=== PATIENT | male | born 1960 | race Caucasian/White ===

== ENCOUNTER 2024-02-18 16:32 | Emergency (ER) | payer OTHER, SELFPAY ==
[2024-02-18 16:43] VITALS: BP 163/87
[2024-02-18 17:01] LABS: % Basophils 0.3 % (0-2); % Eosinophils 1.4 % (0-6); % Immature Granulocytes 0.3 % (0-0.5); % Lymphocytes 35.5 % (20.5-51.1); % Monocytes 5.1 % (1.7-9.3); % Neutrophils 57.4 % (42.2-75.2); Absolute Eosinophils 0.1 10^3/uL (0-0.7); Absolute Lymphocytes 3.4 10^3/uL (1.2-3.4); Absolute Monocytes 0.5 10^3/uL (0.1-0.6); Absolute Neutrophils 5.6 10^3/uL (1.4-6.5); Hematocrit 41.9 % (39.0-52.0); Hemoglobin 14.7 g/dL (13.0-18.0); Mean Corp Hgb Conc. 35.1 g/dL (33.0-37.0); Mean Corpuscular Hgb 30.8 pg (27.0-31.0); Mean Corpuscular Volume 87.7 fL (80.0-94.0); Mean Platelet Volume 9.4 fL (7.4-10.4); Nucleated Red Blood Cells % 0 % (-); Platelet Count 259 10^3/uL (130-400); Red Blood Cell Count 4.78 10^6/uL (4.70-6.10); Red Cell Dist. Width 12.5 % (11.5-14.5); White Blood Cell Count 9.7 10^3/uL (4.8-10.8)
[2024-02-18 17:12] LABS: D-Dimer 0.33 ug/mlFEU (0.00-0.50)
[2024-02-18 17:17] LABS: ALT (SGPT) 33 U/L (0-50); AST (SGOT) 34 U/L (17-59); Albumin 4.4 g/dl (3.5-5.0); Alkaline Phosphatase 71 U/L (38-126); Blood Urea Nitrogen 17 mg/dl (9-20); Calcium 9.4 mg/dl (8.4-10.2); Carbon Dioxide 27 mmol/L (22-30); Chloride 105 mmol/L (98-107); Glucose 99 mg/dl (70-99); Potassium 4.1 mmol/L (3.5-5.1); Sodium 139 mmol/L (135-145); Total Bilirubin 0.7 mg/dl (0.2-1.3); Total Protein 6.9 g/dl (6.3-8.2); eGFR > 60.00
[2024-02-18 17:24] LABS: Troponin I < 0.012 ng/ml
--- NOTE | 2024-02-18 18:29 | ED.GENMED ---
History of Present Illness
General
Chief Complaint: Breathing Problem
Source: patient
Exam Limitations: none
Time Seen by Provider: 02/18/24 18:00
History of Present Illness
History of Present Illness:
This is a 63 year old male that comes in with c/o SOB and cough. States that he has been sick for the past 19 days. States that he is SOB and that he has spastic coughing spells. States that this causes him to choke. Patient went to last week and
given Prednisone 20mg BID for 5 days, Z-pack and albuterol but nothing is helping. States that he has had diarrhea he thinks from the medication and a headache. states that he has had COVID twice and the last was about 8 months ago. Denies
any fever, chills, chest pain, abd pain, nausea, vomiting, dizziness, urinary burning.
Past History
Past History
ED Past Medical History: Other (Kidney stones); Negative Asthma, HTN, Hypercholesterolemia or NIDDM
ED Past Surgical History: Orthopedic (Right knee surgery, Left arm hardware removed)
Social History
Tobacco: Former smoker
Alcohol: Occasional
Personal:
Living: with family
Review of Systems
Review of Systems
All Other Systems: ROS reviewed and negative except as documented in HPI and ROS
Constitutional: Reports no symptoms; Denies fever or chills
EENT: Reports no symptoms
Respiratory: Reports cough and trouble breathing
Cardiac: Reports no symptoms; Denies chest pain
ABD/GI: Reports diarrhea; Denies abdominal pain, nausea or vomiting
: Reports no symptoms; Denies dysuria, frequency or urgency
Musculoskeletal: Reports no symptoms
Skin: Reports no symptoms
Neurological: Reports headache; Denies dizzy
Psychiatric: Reports no symptoms
Phy Exam
General Physical Exam
General Presentation: no apparent distress
General age: appears stated age
General Skin: warm and dry
General Habitus: normal
General Mental: alert
General Hydration: appears well hydrated
ENT Exam
ENT Exam: TM's normal, pharynx normal and neck supple
Eye Exam
Eye Exam: EOMI
Cardiovascular Exam
Cardiovascular Exam: regular rate/rhythm, no edema, no murmur and normal peripheral pulses
Pulmonary Exam
Pulmonary Exam: no respiratory distress, no rales, chest non tender, no crackles, no rhonchi, no wheezing, decreased breath sounds and other (Dry cough noted)
Gastrointestinal Exam
Gastrointestinal Exam: normal bowel sounds, non tender, soft, no organomegaly, no pulsatile mass and non distended
Musculoskeletal Exam
Musculoskeletal Exam: full ROM and no edema
Skin Exam
Skin Exam: normal color, warm/dry, no rash and no petechia
Psychiatric Exam
Psychiatric Exam: normal mood/affect
Scores
Heart Failure Risk
Heart Failure Risk Score: Not Applicable
Course
Orders/Labs/Results
Orders:
Orders
02/18/24 16:47
Electrocardiogram (*1) Urgent
Reason for Study: Shortness of Breath
Chest [CR Chest - 2 Views ] Urgent
Comment:
Reason For Exam: sob with coughing
02/18/24 16:48
EKG- Treatment ONCE
02/18/24 16:53
Complete Blood Count/With Diff Urgent
Comprehensive Metabolic Panel Urgent
D-Dimer Urgent
Troponin I Urgent
02/18/24 18:11
Ipratropium/Albuterol Sulfate [Duoneb] 3 ml INH R NOW ONE
02/18/24 18:12
CT Chest Pe Study Urgent
Comment:
Reason For Exam: SOB
02/18/24 16:53
02/18/24 16:53
Labs unremarkable. D-dimer 0.33, Troponin <0.012,
Vital Signs
Initial and Last Documented VS:
Initial Vital Signs
Temp Pulse Resp BP Pulse Ox
98.1 F 82 16 163/87 97
02/18/24 16:43 02/18/24 16:43 02/18/24 16:43 02/18/24 16:43 02/18/24 16:43
Last Documented Vital Signs
Temp Pulse Resp BP Pulse Ox
98.1 F 73 20 132/75 95
02/18/24 20:06 02/18/24 20:30 02/18/24 20:30 02/18/24 20:06 02/18/24 20:30
MDM/Problems Addressed
Differential Diagnosis Includes:
Residual COVID cough, Viral syndrome
MDM/Problems Addressed:
This is a 63 year old male that comes in with c/o coughing for the past 19 days. State that he is SOB with a cough. Staes that he has spasms with the coughing that he starts to vomit. Patient has been seen at and given Steroids, Z-pack and
albuterol.
Will check labs. Chest x-ray and it all negative get CT chest.
Back into see patient. Explained that his CT of the chest is negative for any PE, pleural effusion, Pericardia effusion. This may be residual SOB from COVID. Patient to follow up with the correctional casework specialist. Will also place patient on Protonix as
there may be some reflux that is causing his coughing. Patient to stay away from Caffeine as this will also decrease any reflux. Return with any concerns.
Chronic conditions affecting care:
NA
Acute Exacerbation and/or Progression of Chronic Illness:
NA
*Radiology
Radiology exam reviewed: radiology read reviewed (Ct chest-Negative or pulmonary Embolim. No Pleural effusion, No Pericardial effusion. Negative for any Pneumonia. Chest-No radiographic evidence for Pneumonia, pleural effusion or acute pulmonary
edema. )
*Pulse Oximetry
Patient hypoxic: no
*EKG
Interpreted by ED Provider?: Yes
Heart Rate: 72
Rate: normal
Rhythm: sinus
[place]: normal axis
Interval: normal interval
QRS Pattern: normal QRS
Ischemia: no ischemia
*Solar Pool Heating Installer Interpretation
Rate: normal
Heart Rate: 72
Rhythm: sinus
*Critical Care Note
Total Time (30-74mins, 75-104mins- exclusive of procedures): Not Applicable
ED Attending Note
-
Portions of this chart may have been created with voice recognition software.� Occasional wrong word or��sound alike� substitutions may have occurred due to the inherent limitations of voice recognition software.
Discharge Plan
Departure
Patient Disposition: Home (Routine Discharge)
Date of Disposition: 02/18/24
Time of Disposition: 20:56
Patient with high blood pressure during this ER visit?: Yes
Condition: Good
Covid-19: Not Applicable
Discharge Problem:
SOB (shortness of breath)
Instructions: Shortness of Breath (Dyspnea) (DC), BLOOD PRESSURE
Prescriptions:
New
pantoprazole [Protonix] 40 mg tablet,delayed release (DR/EC)
40 mg PO DAILY Qty: 30 0RF
No Action
oxycodone-acetaminophen 5-325 mg Tablet
1 tab PO Q8HPRN PRN (Reason: severe pain)
Patient Comments:
09/21/22: Per PDMP, last filled 09/07/22 #8 for 3 days
tamsulosin 0.4 mg Capsule
0.4 mg PO DAILY
ciprofloxacin HCl [Cipro] 500 mg tablet
500 mg PO BID Qty: 10 0RF
Rx Instructions:
I 0PO BID
Referrals:
Baldomero Lucio MD [Family Provider] -
Pradeep Reilly MD [Active] - Follow up in 2-3 days
Activity Restrictions/Additional Instructions:
As discussed, your blood work is normal along with the CT of your chest. This may be residual cough from COVID. This may also be related to Reflux. Please try and stay away form Caffeine as this will increase the reflux. You have had a prescription
for Protonix sent to your Pharmacy. Please take this daily as directed. Follow up with the correctional casework specialist for further evaluation. IF YOU HAVE CHEST PAIN, INCREASED SHORTNESS OF BREATH, OR YOU HAVE ANY OTHER CONCERNS PLEASE RETURN TO THE
EMERGENCY ROOM.
Interventions
Interventions:
*Risk Screen - Suicide Last Done: 02/18/24 18:38
*General Assessment Last Done: 02/18/24 18:38
*Neglect/Abuse Screening Last Done: 02/18/24 18:38
*ED COVID-19 Vaccine History Last Done: 02/18/24 18:38
ED- Cardiac Assessment Last Done: 02/18/24 18:58
ED- Pulmonary Assessment Last Done: 02/18/24 18:58
Discharge Date and Time
Print Language: ICELANDIC
[2024-02-18] MEDS: DUONEB 3 ML INH (18:33)
[2024-02-18 18:37] VITALS: BMI 34.8
[2024-02-18 18:40] VITALS: BP 147/78
[2024-02-18 18:47] VITALS: BP 147/78
[2024-02-18 19:00] VITALS: BP 145/73
[2024-02-18 20:05] VITALS: BP 132/75
[2024-02-18 20:06] VITALS: BP 132/75
== END 2024-02-18 21:19 | disposition home or self-care (01) ==
LOC: EMR 16:32
PROVIDERS: Student in an Organized Health Care Education/Training Program; EMERGENCY PHYSICIAN Student in an Organized Health Care Education/Training Program; FAMILY PHYSICIAN Internal Medicine
DX: R06.02 Shortness of breath (principal); R05.9 Cough, unspecified; Z87.442 Personal history of urinary calculi; Z87.891 Personal history of nicotine dependence
CPT/HCPCS: 99284; 94640; 71046; 71275; 80053; 84484; 85025; 85379; 93005; Q9967

== ENCOUNTER 2024-03-26 23:04 | Observation (INO) | payer OTHER, SELFPAY ==
[2024-03-26] VITALS (15 sets, daily range): BP systolic 134–165; BP diastolic 66–88; BMI 30.5
[2024-03-26 19:42] LABS: % Basophils 0.3 % (0-2); % Eosinophils 1.6 % (0-6); % Immature Granulocytes 0.3 % (0-0.5); % Monocytes 6.4 % (1.7-9.3); % Neutrophils 56.4 % (42.2-75.2); Absolute Eosinophils 0.1 10^3/uL (0-0.7); Absolute Lymphocytes 2.5 10^3/uL (1.2-3.4); Absolute Monocytes 0.5 10^3/uL (0.1-0.6); Hematocrit 41.4 % (39.0-52.0); Hemoglobin 14.9 g/dL (13.0-18.0); Mean Corpuscular Hgb 31.2 pg (27.0-31.0); Mean Corpuscular Volume 86.6 fL (80.0-94.0); Mean Platelet Volume 9.8 fL (7.4-10.4); Nucleated Red Blood Cells % 0 % (-); Platelet Count 224 10^3/uL (130-400); Red Blood Cell Count 4.78 10^6/uL (4.70-6.10)
[2024-03-26 19:47] LABS: ALT (SGPT) 31 U/L (0-50); AST (SGOT) 36 U/L (17-59); Albumin 4.7 g/dl (3.5-5.0); Alkaline Phosphatase 69 U/L (38-126); Blood Urea Nitrogen 22 mg/dl (9-20); Calcium 9.6 mg/dl (8.4-10.2); Carbon Dioxide 31 mmol/L (22-30); Chloride 104 mmol/L (98-107); Glucose 107 mg/dl (70-99); Potassium 4.1 mmol/L (3.5-5.1); Sodium 144 mmol/L (135-145); Total Protein 7.4 g/dl (6.3-8.2); eGFR > 60.00
[2024-03-26 20:02] LABS: COVID-19 Antigen Negative (Negative)
--- NOTE | 2024-03-26 20:10 | ED.GENMED ---
History of Present Illness
<Jessica Bruce MD, Resident - Last Filed: 03/26/24 22:34>
General
Chief Complaint: Breathing Problem
Time Seen by Provider: 03/26/24 20:07
History of Present Illness
History of Present Illness:
63-year-old male with a past medical history of kidney stones presented to ER today with shortness of breath and cough. Patient describes spastic coughing spells which induced choking and he had several episodes of near syncope associated with his
cough. He localizes his cough to his throat.He reports that he has symptoms since January 31, 2024. Today he was seen a jewel bearing maker physician and this physician recommended to the patient to be seen at ER to probable admission for IV steroids. The
physician reported his concern that the patient might have airway obstruction or severe bronchospasm with his episodes. Additionally the patient was recommended to be seen by an ENT physician. Previously the patient was given steroids at ICU unit
IV and additionally he was given steroids by his PCP physician. His last steroid dose was given on 02/28 and it was tapered in 8 days. The patient reports steroid is helping with his shortness of breath but not completely resolves shortness of
breath and coughing.
PMH: Kidney stone
Medications: None
If applicable-neuro sx onset
Date of onset of symptoms: 03/26/24
Past History
<Jessica Bruce MD, Resident - Last Filed: 03/26/24 22:34>
Past History
ED Past Medical History: Other (Kidney stones); Negative Asthma, HTN, Hypercholesterolemia or NIDDM
ED Past Surgical History: Orthopedic (Right knee surgery, Left arm hardware removed)
Social History
Tobacco: Former smoker
Alcohol: Occasional
Personal:
Living: with family
Phy Exam
<Jessica Bruce MD, Resident - Last Filed: 03/26/24 22:34>
General Physical Exam
General Presentation: well appearing and no apparent distress
General age: appears stated age
General Skin: warm
General Habitus: normal
General Mental: alert
Pulmonary Exam
Pulmonary Exam: lungs clear, no respiratory distress, chest non tender, no crackles, no stridor and no wheezing
Gastrointestinal Exam
Gastrointestinal Exam: soft
Neurological Exam
Neurological Exam: alert and oriented x3
Scores
<Jessica Bruce MD, Resident - Last Filed: 03/26/24 22:34>
Heart Failure Risk
Heart Failure Risk Score: Not Applicable
Course
<Jessica Bruce MD, Resident - Last Filed: 03/26/24 22:34>
Orders/Labs/Results
Orders:
Orders
03/26/24 19:14
CXR2 [CR Chest - 2 Views ] Urgent
Comment:
Reason For Exam: cough
03/26/24 19:28
COVID-19 Antigen Urgent
Source: Nasal Swab
Complete Blood Count/With Diff Urgent
Comprehensive Metabolic Panel Urgent
03/26/24 21:33
MethylPREDNISolone PF [Solu-Medrol Pf] 125 mg IV NOW STA
03/26/24 22:31
Admit/Transfer Patient As Directed
Co-Sign Provider:
Level of Care: Observation services
Assign to:: Medical/Surgical
Physician / Group: Anna Garcia
Diagnosis: cough variant asthma
PRN Pain Medication Management As Directed
May give lesser potent ordered pain med per pt: Yes
preference::
Protocol:: Medication orders for pain may be administered in a
manner that supports deferring to patient preference
when the pt is:
- Requesting an ordered lesser potent pain medication.
Least to most potent pain medications are defined
as: acetaminophen < NSAID < tramadol < opioids
(morphine, oxycodone, hydromorphone).
- Requesting a lesser dose of the same medication IF
ORDERED.
- Requesting a less intrusive route of administration
if both routes are prescribed by the provider (PO <
IV).
03/26/24 22:32
Code Status As Directed
Resuscitation Status: Full Code
Abnormal Lab Results
03/26/24
19:28
MCH 31.2 H pg
(27.0-31.0)
Carbon Dioxide 31 H mmol/L
(22-30)
BUN 22 H mg/dl
(9-20)
Glucose 107 H mg/dl
(70-99)
03/26/24 19:28
03/26/24 19:28
Vital Signs
Initial and Last Documented VS:
Initial Vital Signs
Temp Pulse Resp BP Pulse Ox
98.8 F 82 18 134/82 95
03/26/24 19:09 03/26/24 19:09 03/26/24 19:09 03/26/24 19:09 03/26/24 19:09
Last Documented Vital Signs
Temp Pulse Resp BP Pulse Ox
98.8 F 71 19 158/81 94
03/26/24 19:09 03/26/24 22:45 03/26/24 22:45 03/26/24 22:45 03/26/24 22:45
<Jennifer Hartmann MD - Last Filed: 03/26/24 23:01>
Orders/Labs/Results
Orders:
Orders
03/26/24 19:14
CXR2 [CR Chest - 2 Views ] Urgent
Comment:
Reason For Exam: cough
03/26/24 19:28
COVID-19 Antigen Urgent
Source: Nasal Swab
Complete Blood Count/With Diff Urgent
Comprehensive Metabolic Panel Urgent
03/26/24 21:33
MethylPREDNISolone PF [Solu-Medrol Pf] 125 mg IV NOW STA
03/26/24 22:31
Admit/Transfer Patient As Directed
Co-Sign Provider:
Level of Care: Observation services
Assign to:: Medical/Surgical
Physician / Group: Anna Garcia
Diagnosis: cough variant asthma
PRN Pain Medication Management As Directed
May give lesser potent ordered pain med per pt: Yes
preference::
Protocol:: Medication orders for pain may be administered in a
manner that supports deferring to patient preference
when the pt is:
- Requesting an ordered lesser potent pain medication.
Least to most potent pain medications are defined
as: acetaminophen < NSAID < tramadol < opioids
(morphine, oxycodone, hydromorphone).
- Requesting a lesser dose of the same medication IF
ORDERED.
- Requesting a less intrusive route of administration
if both routes are prescribed by the provider (PO <
IV).
03/26/24 22:32
Code Status As Directed
Resuscitation Status: Full Code
Abnormal Lab Results
03/26/24
19:28
MCH 31.2 H pg
(27.0-31.0)
Carbon Dioxide 31 H mmol/L
(22-30)
BUN 22 H mg/dl
(9-20)
Glucose 107 H mg/dl
(70-99)
03/26/24 19:28
03/26/24 19:28
Vital Signs
Initial and Last Documented VS:
Initial Vital Signs
Temp Pulse Resp BP Pulse Ox
98.8 F 82 18 134/82 95
03/26/24 19:09 03/26/24 19:09 03/26/24 19:09 03/26/24 19:09 03/26/24 19:09
Last Documented Vital Signs
Temp Pulse Resp BP Pulse Ox
98.8 F 71 19 158/81 94
03/26/24 19:09 03/26/24 22:45 03/26/24 22:45 03/26/24 22:45 03/26/24 22:45
<Jessica Bruce MD, Resident - Last Filed: 03/26/24 22:34>
MDM/Problems Addressed
Differential Diagnosis Includes:
Bronchospasm, Allergy, URI, Irritable Larynx Syndrome (ILS), GERD
MDM/Problems Addressed:
63 years old male presented to the ER today after he was recommended to receive IV steroid by his jewel bearing maker. The patient reported consistent cough results since 01/31/2024. He reported he had COVID twice and this cough can be related to be
that and also he reported having a dental surgery before this cough started. He was prescribed oral steroids by his primary care physician on 02/29/2020 and his steroid was tapered in 8 days. He reported that steroid helped him some and today his
jewel bearing maker has a concern of bronchospasm and he wanted him to go to ER to receive IV steroids. Patient's x-rays was unremarkable for COPD and pneumonia. CBC and CMP obstipation was unremarkable. Patient was recommended to see an ENT physician
by his jewel bearing maker . It is recommended to the patient have follow-up with his jewel bearing maker and PCP and to see an ENT physician..
<Jessica Bruce MD, Resident - Last Filed: 03/26/24 22:34>
*Critical Care Note
Total Time (30-74mins, 75-104mins- exclusive of procedures): Not Applicable
ED Attending Note
<Jessica Bruce MD, Resident - Last Filed: 03/26/24 22:34>
-
Portions of this chart may have been created with voice recognition software.� Occasional wrong word or��sound alike� substitutions may have occurred due to the inherent limitations of voice recognition software.
<Jennifer Hartmann MD - Last Filed: 03/26/24 23:01>
ED Attending Note
Patient seen and examined by attending physician: Yes
I performed a history and physical exam of patient and discussed management with resident, I reviewed resident's note and agree with documented findings and plan of care.: Yes
ED Attending Note:
Patient is a 63-year-old man presenting to the emergency department with shortness of breath. Patient states that since January he has been dealing with shortness of breath and a cough. He states that his cough almost causes him to pass out. He is
also been extremely short of breath which has been constant since January. He has had extensive evaluations completed here which have all been negative. He has been on steroids twice. Today he went to his jewel bearing maker had testing done and was told
that he should come to the emergency department for admission for IV steroids and ENT evaluation. He states the cough feels as if it is coming from his upper airway. Patient's states that his voice sounds more different. No fevers or chills.
No facial swelling. No drooling. He was on antibiotics last month. Unclear etiology but patient has been following up with both his PCP and jewel bearing maker
Vitals here are notable for a normal room air pulse ox and exam does show clear breath sounds bilaterally. Moist oral mucosa. No swelling of his tongue. His heart is regular rate and rhythm. His legs are without edema or tenderness.
Per review of jewel bearing maker note will start patient on IV Solu-Medrol. Blood work was obtained prior to evaluation which shows a normal white count. BMP is normal. Chest x-ray without any acute abnormality per my interpretation. Discussed with
hospitalist who accepted patient for admission.
Discharge Plan
Departure
Patient Disposition: Admit
Date of Disposition: 03/26/24
Time of Disposition: 21:42
Presentation/result/management discussed w/ accepting MD/DO: Hospitalist
Discharge Problem:
Cough
Prescriptions:
No Action
No Current Medications
0
Referrals:
Mat Lucio MD [Family Provider] -
Interventions
Interventions:
*Risk Screen - Suicide Last Done: 03/26/24 20:15
*General Assessment Last Done: 03/26/24 19:12
*Neglect/Abuse Screening Last Done: 03/26/24 19:11
ED- Fall Risk Assessment Last Done: 03/26/24 20:15
*ED COVID-19 Vaccine History Last Done: 03/26/24 19:12
ED- Cardiac Assessment Last Done: 03/26/24 20:15
ED- Pulmonary Assessment Last Done: 03/26/24 20:15
Discharge Date and Time
Print Language: GREEK
[2024-03-26] MEDS: SOLU-MEDROL PF 125 MG IV (21:50)
--- NOTE | 2024-03-26 22:10 | HPS.HSE ---
Family Physician
-
Family Physician: Mat Lucio
Chief Complaint
-
shortness of breath and cough
History of Present Illness
Mr. Abel Chapman is a 63 yo man with hx nephrolithiasis was sent to the ER today by Dr. Temple, his concrete rod buster, for admission for reactive airway disease. Patient has had a persistent cough over the last two months, seen in the ER on 02/17.
Patient has been prescribed two courses of steroids since symptoms began, last on 02/28 and tapered over 8 days. He was also prescribed a course of Azithromycin, Augmentin and inhalers. PPI did not help cough.
Per [facility] note: spirometry demonstrates 'There was no obstructive or restrictive lung disease. The forced vital capacity was 86% of prediced, FEV1 96%, FEV1/FVC ratio 85%.. It is noted that spirometry can be normal even in severe cough variant
asthma.
Per EC[facility] note, ENT evaluation recommended as he localizes his cough to his laryngeal region.
Patient states that he only had some mild relief with steroids. Has tried Tessalon Pearles, Robitussin, Robitussin with codeine and nothing is helping cough. He describes fits of coughing where he has difficulty breathing after and needs to catch
his breath.
No fevers/chills. No chest pain. No abdominal pain. No vomiting. No LE swelling. No rash.
Medical History
Past Medical History
Past Medical History: Reports Other (nephrolithiasis )
Past Surgical History: Reports Orthopedic
Social History
Tobacco: Former Smoker
Alcohol: Occasional
Family History
Family History: Not pertinent
Allergies / Home Medications
Allergies reflects when Allergies were last updated in [facility].
Home Medications with original date entered in [facility]
Allergy/Medication List:
Allergies
Allergy/AdvReac Type Severity Reaction Status Date / Time
No Known Allergies Allergy Verified 03/26/24 19:08
Home Medications
No Meds [No Current Medications] 03/26/24
Review of Systems
-
History Source: Patient
A 12 point ROS was completed and negative except as noted: Yes
Physical Exam
Vital Signs
Vital Signs
Temp Pulse Resp BP Pulse Ox
98.8 F 71 16 155/80 94
03/26/24 19:09 03/26/24 21:45 03/26/24 22:00 03/26/24 21:45 03/26/24 21:45
Physical Exam
General: No Apparent Distress
HEENT: PERRLA
Respiratory: No Wheezes
Cardiac: S1/S2 and Regular Rhythm
GI: Soft and Non Tender
Musculoskeletal: No Edema
Skin: Warm and Dry; No Rash
Neuro: AO x 3
Psych: Calm
Laboratory Results
-
03/26/24 19:28
03/26/24 19:28
Laboratory Results
Total Bilirubin 1.0 mg/dl (0.2-1.3) 03/26/24 19:28
AST 36 U/L (17-59) 03/26/24 19:28
ALT 31 U/L (0-50) 03/26/24 19:28
Alkaline Phosphatase 69 U/L (38-126) 03/26/24 19:28
Data Reviewed
-
Diagnostic Radiology: Report Reviewed by me
Lab Data: Labs Reviewed by me
Impression/Plan
-
Mr. Abel Chapman is a 63 yo man with hx nephrolithiasis was sent to the ER today by Dr. Temple, his concrete rod buster, for admission for reactive airway disease. Patient has had a persistent cough over the last two months, seen in the ER on 02/17.
Triage VS: T 98.8, P 82, RR 18, BP 134/82, SpO2 95%
Labs: WBC 7, Hg 14.9, PLT 224, Na 144, K+ 4.1, CO2 31, BUN 22, Cr 1.1, Glucose 107, liver enzymes WNL
CXR
IMPRESSION:
No acute cardiopulmonary process.
Severe Cough Variant Asthma
-will admit patient to med/surg, observation
-s/p IV Methylprednisolone, continue IV Decadron
-start inhaled steroids
-standing duonebs and PRN
-Pulm consult
-ENT consult
-will send serologies for pertussis
-robitussin PRN although patient stated he stopped cough suppressant medications as they don't work; offered robitussin with codeine but he stated it just made him tired
DVT PPx lovenox subQ
FULL CODE
--- NOTE | 2024-03-27 05:11 | PTCARENOTE ---
Patient ambulated in room. No complaints of pain. Cough w/PO intake, resolves quickly. No respiratory distress noted. See nursing shift assessment for complete assessment. VSS. Patient resting in bed, call de guzman in reach.
[2024-03-27] MEDS: DECADRON 4 MG IV ×2 (07:38→16:46)
[2024-03-27] MEDS: FLUSH (NSS) 2 FLUSH IV ×2 (07:38→16:47)
[2024-03-27] MEDS: PULMICORT 0.5 MG INH ×2 (07:40→19:26)
[2024-03-27] MEDS: DUONEB 3 ML INH ×4 (07:40→19:26)
[2024-03-27 07:41] VITALS: BP 114/64
--- NOTE | 2024-03-27 10:05 | W.PN.HOSP.TC ---
Today's Communication/Plan
-
Pulmonary consult
ENT consult
Assessment / Plan
Assessment / Plan
Gen-AAOx3, NAD
HEENT-NC, AT, anicteric, clear oral mm
Neck-supple
CV-reg, no M, +S1/S2
Lungs-clear B/L
Abd-soft, NT, ND
Ext-no edema
Musculoskeletal-no cyanosis, clubbing
Skin-warm and dry
Neuro-grossly non-focal
Psych-calm, cooperative
Chronic cough -suspect postinfectious cough. Had an episode of acute bronchitis late January. Treated with a course of steroids and antibiotics. Did not get COVID testing until he was admitted to the hospital yesterday.
Chest x-ray clear. No obvious wheezing on exam. Pulmonary consulted. Currently on IV steroids. Await ENT input.
Apparently did not improve with trial of proton pump inhibitor. PFTs unremarkable.
Reviewed case with Dr. Hardy.
Obesity due to excess calories
History of nephrolithiasis
Full code
Anticipated Discharge: Within 24 hours
Subjective/Interval History
-
Date of Service: March 27, 2024
Patient seen and examined. Denies shortness of breath. Complaining of occasional cough.
Objective Data
-
Vital Signs:
Vital Signs
Temp Pulse Resp BP Pulse Ox
97.5 F 77 14 114/64 99
03/27/24 07:41 03/27/24 07:46 03/27/24 07:46 03/27/24 07:41 03/27/24 07:46
I&O
03/26/24 03/27/24 03/28/24
06:59 06:59 06:59
Intake Total 240 / 240
Balance 240 / 240
Review of Systems
-
History Source: Patient
All other systems: Reviewed and negative
--- NOTE | 2024-03-27 10:10 | CON.PUL ---
Consultation
Consultation Request
Date/Time Consultation Requested: 03/27/2024-7:30 AM
Date/Time Consultation Performed: 03/27/2024-8 AM
Requesting Provider: Hospitalist
Performing Provider: Dr. Hardy
Reason for Consultation: Asthma exacerbation/persistent cough
Medical History
-
Chief Complaint: Cough/shortness of breath
History of Present Illness:
63-year-old male with a history of nephrolithiasis who had an upper respiratory tract infection end of January had a persistent cough treated with outpatient steroids, inhalers, etc. without improvement seen by pulmonary and sent to the emergency room
for persistent cough and possible admission for IV steroids-pulmonary consulted for persistent cough/asthma 03/27/2024. Patient complains of cough intermittent throughout the day with paroxysms that are quite intense. He does not have significant
shortness of breath at rest and denies any chest pain, chest tightness, wheezing, productive cough, recent fevers, chills, postnasal drip, acid reflux, abdominal pain, leg swelling or weakness.
Past Medical History
Past Medical History: None (Nephroliths. Right knee surgery. Left arm/finger surgery.)
Social History
Tobacco: Non-smoker
Alcohol: None
Drug: None
Personal:
Living: With Family
Occupational Exposures: No known asbestos exposure
Environmental Exposures: No known tuberculosis exposure
Family History
Family History: Other (Father-pancreatic cancer. Mother-CAD/CABG)
Allergies / Home Medications
Allergies
Allergy/AdvReac Type Severity Reaction Status Date / Time
No Known Allergies Allergy Verified 03/26/24 19:08
Home Medications
�Medication �Instructions �Recorded �Confirmed �Last Taken �Type
No Meds [No Current Medications] 03/26/24 03/26/24 Unknown History
Review of Systems
-
Unable to Obtain full review of systems at this time due to: Other (Per HPI)
Vitals / Labs / Diagnostic Testing
Vital Signs
Temp Pulse Resp BP Pulse Ox
97.5 F 77 14 114/64 99
03/27/24 07:41 03/27/24 07:46 03/27/24 07:46 03/27/24 07:41 03/27/24 07:46
Lab Data
03/26/24 19:28
03/26/24 19:28
Diagnostic Testing:
Physical Exam
-
Exam:
Well-nourished and well-developed in no apparent distress
HEENT-atraumatic, normocephalic
Neck-supple, no JVD, no bruit
Heart-regular rate and rhythm-no murmurs, rubs or gallops
Chest-clear to auscultation, no wheezes, crackles
Back-no tenderness
Abdomen-soft, nontender, nondistended, no hepatosplenomegaly
Extremities-no cyanosis, clubbing, edema and good peripheral pulses
Integument-intact, no rashes, lesions or ecchymosis
Neurology-alert and oriented, nonfocal motor and sensory exam
Assessment
-
63-year-old male with a history of nephrolithiasis who had an upper respiratory tract infection end of January had a persistent cough treated with outpatient steroids, inhalers, etc. without improvement seen by pulmonary and sent to the emergency room
for persistent cough and possible admission for IV steroids-pulmonary consulted for persistent cough/asthma 03/27/2024.
Intractable paroxysms of cough likely related to asthma with acute exacerbation and postinfectious cough
Asthma with acute exacerbation
Chronic cough
Postinfectious cough
Minimal postnasal drip
No obvious reflux
Conditions present prior to admission:
Nephrolithiasis
Plan
Respiratory decompensation due to chronic cough likely postinfectious with asthma component
Supplemental oxygen if needed-currently on room air and oxygenating well
Aspiration precautions
Nebulizers-Pulmicort and DuoNebs
Decadron 4 mg IV every 8 hours-changed to prednisone in the next 24 hours with slow taper
Expdpdsokceg-Viubqgxh-cll not worked in the outpatient setting
Robitussin as needed
No obvious postnasal drip or acid reflux
Bordetella pertussis titers pending
ENT evaluation pending
DVT prophylaxis-on Lovenox
Nutrition
Early mobilization
Eventually discharged on prednisone taper and inhaler ICS/LABA-like Breo or Advair
Outpatient pulmonary follow-up with Dr. Temple-full PFTs
Diagnostic data:
Chest x-ray 03/26/2024-NAD
CT scan of the chest- PE study-02/18/24: No PE. Images reviewed.� Decreased inspiration.� Moderate patchy and confluent groundglass opacity in the posterior mid to lower lungs relatively symmetric consistent with hypoinflation/atelectasis.� No focal
consolidation. No interstitial lung disease.
Spirometry- 03/26/24: Spirometry was within normal limits.� The forced vital capacity was 3.78 L or 86% of predicted.� The FEV1 was 3.20 L were 96% of predicted.� The FEV1/FVC ratio was 85%.� There was no evidence for obstructive or restrictive lung
disease.
6 minute walk test-03/26/24: His resting room air oxygen saturation was 96% declined to 93% on the 6 minute walk test which covered 1050 feet.� His maximum heart rate was 112 bpm.� His perceived dyspnea was 3 on a 10 point dyspnea scale.
Data Reviewed
-
PFT: Report reviewed by me
EKG: Report reviewed by me
Radiology: Image personally visualized and interpreted and Report reviewed by me
CT Scan: Report reviewed by me
Medical Tests (Nuc Med, Echo etc): Report reviewed by me
Labs: Labs reviewed by me
Old Records: Reviewed
Total Time Spent with Patient (in minutes): 55
[2024-03-27 11:51] LABS: Hepatitis C Antibody Negative (Negative)
--- NOTE | 2024-03-27 14:12 | CON.MD ---
Consultation - Medical
-
chronic cough
2 mo Hx of chronic cough, paroxysmal, started after upper resp infection
treated c steroids and antibx without relief, CXR clear
Denies heartburn, but does say food sometimes sticks in throat, sometimes causes cough
No fever, smoked 30 yrs ago
Was on Protonix for just over a week with no improvement
PE - OC normal
Lungs clear
Neck - negative
Flex endo - moderate edema and thick mucus in interarytenoid area and cricopharyngeus
No lesions or infection noted
A/P Chronic cough
Pertussis testing pending
On steroids
May have some component of silent GERD, added Protonix 40 mg BID for now
Reviewed dietary precautions
--- NOTE | 2024-03-27 15:12 | CM ---
Spoke with pt over phone to complete initial assessment
Pt reports he lives with his and 2 adult children in a split-level
Reports independent, working FT, drives
DME - none
SNF/HH - denies past hx. Has had outpatient PT in past
Has ride at discharge
PCP - Dr Mat Serna
Pharm - [facility]
Discussed obs status for admission
Plan - anticipate home no needs
[2024-03-27 15:23] VITALS: BP 112/57
[2024-03-27] MEDS: TYLENOL 650 MG PO (16:51)
[2024-03-27] MEDS: PROTONIX 40 MG PO (21:03)
[2024-03-27 23:53] VITALS: BP 119/56
[2024-03-28] MEDS: DECADRON 4 MG IV ×2 (00:20→09:06)
[2024-03-28] MEDS: PULMICORT 0.5 MG INH (07:40)
[2024-03-28] MEDS: DUONEB 3 ML INH ×2 (07:40→11:29)
[2024-03-28 08:02] VITALS: BP 117/64
[2024-03-28] MEDS: PROTONIX 40 MG PO (09:06)
--- NOTE | 2024-03-28 09:54 | W.PN.PUL.V3 ---
Today's Communication / Plan
-
Change Decadron to prednisone with slow taper
MDI
PPI
Outpatient pulmonary follow-up
Assessment
-
63-year-old male with a history of nephrolithiasis who had an upper respiratory tract infection end of January had a persistent cough treated with outpatient steroids, inhalers, etc. without improvement seen by pulmonary and sent to the emergency room
for persistent cough and possible admission for IV steroids-pulmonary consulted for persistent cough/asthma 03/27/2024.
Intractable paroxysms of cough likely related to asthma with acute exacerbation and postinfectious cough
Asthma with acute exacerbation
Chronic cough
Postinfectious cough
Minimal postnasal drip
No obvious reflux
Conditions present prior to admission:
Nephrolithiasis
Plan
Respiratory decompensation due to chronic cough likely postinfectious with asthma component-overall slowly improving
Supplemental oxygen if needed-currently on room air and oxygenating well
Aspiration precautions
Nebulizers-Pulmicort and DuoNebs
Decadron 4 mg IV every 8 hours-could change to prednisone 40 mg daily for 3 days, then 30 mg daily for 3 days, then 20 mg daily for 3 days, then 10 mg daily for 3 days and then discontinue
Cdvvoybcxikg-Balfqcca-rcn not worked in the outpatient setting
Robitussin as needed
No obvious postnasal drip or acid reflux
Bordetella pertussis titers pending
ENT evaluation-Dr. Serna reviewed-possible component of silent reflux-Protonix added
Flexible laryngoscopy-moderate edema thick mucus, no lesions or infection
DVT prophylaxis-on Lovenox
Nutrition
Early mobilization
Reassurance was provided to the patient-cough will slowly resolve over the next 6 weeks - 6 months-hopefully inhalers/steroids and reflux therapy will hasten recovery
When discharged-please place on prednisone taper and inhaler ICS/LABA-like Breo or Advair
Outpatient pulmonary follow-up with Dr. Temple-full PFTs
Diagnostic data:
Chest x-ray 03/26/2024-NAD
CT scan of the chest- PE study-02/18/24: No PE. Images reviewed.� Decreased inspiration.� Moderate patchy and confluent groundglass opacity in the posterior mid to lower lungs relatively symmetric consistent with hypoinflation/atelectasis.� No focal
consolidation. No interstitial lung disease.
Spirometry- 03/26/24: Spirometry was within normal limits.� The forced vital capacity was 3.78 L or 86% of predicted.� The FEV1 was 3.20 L were 96% of predicted.� The FEV1/FVC ratio was 85%.� There was no evidence for obstructive or restrictive lung
disease.
6 minute walk test-03/26/24: His resting room air oxygen saturation was 96% declined to 93% on the 6 minute walk test which covered 1050 feet.� His maximum heart rate was 112 bpm.� His perceived dyspnea was 3 on a 10 point dyspnea scale.
Subjective Data
-
Date of Service:
Date of Service: March 28, 2024
Chief Complaint: Pulmonary Follow Up and Dyspnea Follow Up
Subjective:
Overall cough slowly improving, no chest pain, chest tightness, active wheezing, postnasal drip, or subjective reflux
Review of Systems
General: Other (Per HPI)
Objective Data
Data Reviewed
Vital Signs / I&O:
Vital Signs
Temp Pulse Resp BP Pulse Ox
97.9 F 79 16 117/64 99
03/28/24 08:02 03/28/24 08:21 03/28/24 08:21 03/28/24 08:02 03/28/24 08:21
Intake and Output
03/27/24 03/28/24 03/29/24
06:59 06:59 06:59
Intake Total 240 / 240 1800 / 1800
Balance 240 / 240 1800 / 1800
SaO2: 99
Physical Exam
General: Respiratory Distress (n) and Comfortable
HEENT: Normocephalic, Anicteric and Moist Mucous Membranes
Cardiovascular: Regular Rhythm
Respiratory: Wheeze (Very faint forced end expiratory), Crackles (n), Rhonchi (n), Non-Labored Respirations, Accessory Resp Muscle Use (n) and Stridor (n)
GI: Soft, Non Distended and Non Tender
Neurology: Awake, Alert and No Motor Deficits
Skin: Warm, Good Color, Cyanosis (n), Jaundice (n) and Rash (n)
Labs/Micro/Reports
Lab Data
03/26/24 19:28
03/26/24 19:28
--- NOTE | 2024-03-28 10:27 | W.PN.HOSP.TC ---
Today's Communication/Plan
-
Discharge
Assessment / Plan
Assessment / Plan
Gen-AAOx3, NAD
HEENT-NC, AT, anicteric, clear oral mm
Neck-supple
CV-reg, no M, +S1/S2
Lungs-clear B/L
Abd-soft, NT, ND
Ext-no edema
Musculoskeletal-no cyanosis, clubbing
Skin-warm and dry
Neuro-grossly non-focal
Psych-calm, cooperative
Chronic cough -suspect postinfectious cough. Had an episode of acute bronchitis late January. Treated with a course of steroids and antibiotics. Did not get COVID testing until he was admitted to the hospital.
Chest x-ray clear. No obvious wheezing on exam. Pulmonary consulted. Currently on IV steroids. Appreciate ENT input, Protonix started. PFTs unremarkable.
Reviewed case with Dr. Hardy.
Obesity due to excess calories
History of nephrolithiasis
Full code
Dispo -medically stable for discharge today. Will discuss with pulmonary. Outpatient follow-up with pulmonary, ENT, PCP.
31 minutes spent in discharge process.
Anticipated Discharge: Today
Subjective/Interval History
-
Date of Service: March 28, 2024
Patient seen and examined. Still with occasional cough. Denies shortness of breath.
Objective Data
-
Vital Signs:
Vital Signs
Temp Pulse Resp BP Pulse Ox
97.9 F 79 16 117/64 99
03/28/24 08:02 03/28/24 08:21 03/28/24 08:21 03/28/24 08:02 03/28/24 09:54
I&O
03/27/24 03/28/24 03/29/24
06:59 06:59 06:59
Intake Total 240 / 240 1800 / 1800
Balance 240 / 240 1800 / 1800
Review of Systems
-
History Source: Patient
All other systems: Reviewed and negative
--- NOTE | 2024-03-28 11:10 | W.DS.TRANS ---
DC Summary - Judicial Clerk
-
Discharge Instructions:
Discharge Diagnosis/Procedures Postinfectious cough
Diet Regular
Activity As tolerated
Driving Restrictions As prior to admission
Bathing Restrictions None
Instructions:
Stand-Alone Forms:
Changes to Home Medications: No
Discharge Medications:
DC Medications w/original date entered in [facility]
albuterol sulfate 90 mcg/actuation aerosol inhaler 2 puff inhalation Q6H PRN shortness of breath or wheezing #8.5 grams 03/28/24
pantoprazole 40 mg tablet,delayed release 40 mg PO BID #60 tabs 03/28/24
prednisone 10 mg tablet 10 mg PO DIRECTED #50 tabs 03/28/24
Home Medication Changes
Pending Results: No
--- NOTE | 2024-03-28 11:41 | CM ---
Case management following for discharge planning
Pt for discharge today
Has ride home with
Plan - anticipate home no needs
[2024-03-28 14:38] VITALS: BP 118/68
[2024-04-01 15:06] LABS: Bordetella Pertussis Ab, IgA 4.6 IV (<=1.1); Bordetella Pertussis Ab, IgG 4.22 IV (<=1.04); Bordetella Pertussis Ab, IgM 1.8 IV (<=1.1)
[2024-04-02 07:20] LABS: B. Pertussis, IgA IB FHA Positive; B. Pertussis, IgA IB PT Positive; B. Pertussis, IgG IB FHA Positive; B. Pertussis, IgG IB PT Positive; B. Pertussis, IgG IB PT100 Positive; B. Pertussis, IgM IB FHA Negative; B. Pertussis, IgM IB Interp Negative (Negative); B. Pertussis, IgM IB PT Negative
== END 2024-03-28 14:57 | disposition home or self-care (01) ==
LOC: 3 WEST ACU 23:04
PROVIDERS: Emergency Medicine; ADMITTING PHYSICIAN Student in an Organized Health Care Education/Training Program; ATTENDING PHYSICIAN Hospitalist; EMERGENCY PHYSICIAN Student in an Organized Health Care Education/Training Program; FAMILY PHYSICIAN Family Medicine; OTHER PHYSICIAN Internal Medicine Critical Care Medicine; OTHER PHYSICIAN Otolaryngology
DX: J45.991 Cough variant asthma (principal); R06.02 Shortness of breath; J45.901 Unspecified asthma with (acute) exacerbation; J98.8 Other specified respiratory disorders; E11.9 Type 2 diabetes mellitus without complications; I10 Essential (primary) hypertension; R55 Syncope and collapse; N20.0 Calculus of kidney; R09.82 Postnasal drip; E66.09 Other obesity due to excess calories; R09.89 Other specified symptoms and signs involving the circulatory and respiratory systems; Z87.891 Personal history of nicotine dependence; Z87.442 Personal history of urinary calculi; Z82.49 Family history of ischemic heart disease and other diseases of the circulatory system; Z80.8 Family history of malignant neoplasm of other organs or systems; Z68.30 Body mass index [BMI] 30.0-30.9, adult; Z11.52 Encounter for screening for COVID-19
CPT/HCPCS: 71046; 80053; 85025; 86615; 86803; 87811; 94640; 96374; 99285; G0378

== ENCOUNTER → 2024-08-07 06:31 | Outpatient (REF) | payer OTHER, SELFPAY | LOC: MRI 06:31 | PROVIDERS: ATTENDING PHYSICIAN Orthopaedic Surgery; FAMILY PHYSICIAN Family Medicine | DX: M25.552 Pain in left hip (principal) | CPT/HCPCS: 73721 ==